=== PATIENT | female | born 1995 | race Caucasian/White ===

== ENCOUNTER 2018-02-22 16:05 | Emergency (ER) | payer BC ==
[2018-02-22 16:09] VITALS: BP 145/95; PULSE 88; TEMP 99.2; BMI 19.3
--- NOTE | 2018-02-22 16:17 | PDOC ---
History of Present Illness <Carmel Suarez - Last Filed: 02/22/18 17:20> - General History Source: Patient Exam Limitations: No Limitations - History of Present Illness Initial Comments: 02/22/18 16:22 The patient is a 22 year old female with no significant past medical history who presents to the emergency department for evaluation of left foot pain. The patient reports moderate left foot pain with no radiation. The patient reports landing on the lateral side of her left foot after falling and tripping while walking her dog this afternoon. She denies head trauma, loss of consciousness, or any other injuries. Allergies: NKDA Surgical History: Patient denies. Severity: moderate Associated Symptoms: reports: denies symptoms Aspirin Received prior to arrival: Yes: no aspirin today <Arsenio Johnson - Last Filed: 02/22/18 17:25> - General Chief Complaint: Pain, Acute Stated Complaint: LEFT FOOT PAIN Time Seen by Provider: 02/22/18 16:10 Past History - Past Medical History CVA: No COPD: No - Immunization History Immunization Up to Date: Yes - Suicide/Smoking/Psychosocial Hx Smoking History: Never smoked Have you smoked in the past 12 months: No Number of Cigarettes Smoked Daily: 0 Hx Alcohol Use: No Drug/Substance Use Hx: No Substance Use Type: None <Carmel Suarez - Last Filed: 02/22/18 17:20> <Arsenio Johnson - Last Filed: 02/22/18 17:25> - Past Medical History Allergies/Adverse Reactions: Allergies Allergy/AdvReac Type Severity Reaction Status Date / Time No Known Allergies Allergy Verified 02/22/18 16:06 Home Medications: Ambulatory Orders NK [No Known Home Medication] 01/03/15 Control 02/22/18 Review of Systems - Review of Systems Able to Perform ROS?: Yes Is the patient limited Polish proficient: No Constitutional: No: Chills, Diaphoresis, Fever, Loss of Appetite, Malaise, Night Sweats, Weakness, Weight Stable, Unintentional Wgt. Loss, Unexplained wgt Loss HEENTM: No: Eye Pain, Recent change in vision, Ear Pain, Nose Pain, Throat Pain Respiratory: No: Cough, Orthopnea, Shortness of Breath, SOB with Exertion, SOB at Rest Cardiac (ROS): No: Chest Pain, Chest Tightness ABD/GI: No: Abdominal Distended, Constipated, Diarrhea, Nausea, Poor Appetite, Vomiting : No: Burning, Dysuria, Discharge, Frequency, Flank Pain, Hematuria, Incontinence Musculoskeletal: No: Muscle Pain, Muscle Weakness Integumentary: No: Bruising, Change in Color, Dryness, Erythema, Flushing Neurological: No: Headache All Other Systems: Reviewed and Negative <Arsenio Johnson - Last Filed: 02/22/18 17:25> *Physical Exam - Vital Signs Last Vital Signs Temp Pulse Resp BP Pulse Ox 99.2 F 88 18 145/95 100 02/22/18 16:05 02/22/18 16:05 02/22/18 16:05 02/22/18 16:05 02/22/18 16:05 <DanielaNayana Arun - Last Filed: 02/22/18 17:20> - Vital Signs Last Vital Signs Temp Pulse Resp BP Pulse Ox 99.2 F 88 18 145/95 100 02/22/18 16:05 02/22/18 16:05 02/22/18 16:05 02/22/18 16:05 02/22/18 16:05 - Physical Exam Comments: GENERAL: Well developed, well nourished. Awake and alert. No acute distress. HEENT: Normocephalic, atraumatic. PERRLA, EOMI. No conjunctival pallor. Sclera are non- icteric. Moist mucous membranes. Oropharynx is clear. NECK: Supple. Full ROM. No JVD. Carotid pulses 2+ and symmetric, without bruits. No thyromegaly. No lymphadenopathy. CARDIOVASCULAR: Regular rate and rhythm. No murmurs, rubs, or gallops. Distal pulses are 2+ and symmetric. PULMONARY: No evidence of respiratory distress. Lungs clear to auscultation bilaterally. No wheezing, rales or rhonchi. ABDOMINAL: Soft. Non-tender. Non-distended. No rebound or guarding. No organomegaly. Normoactive bowel sounds. MUSCULOSKELETAL Normal range of motion at all joints. No bony deformities or tenderness. No CVA tenderness. EXTREMITIES: (+)Tenderness to palpation to lateral aspect of left food. Malleolus normal. Achilles tendon normal. No cyanosis. No clubbing. No edema. No calf tenderness. SKIN: Warm and dry. Normal capillary refill. No rashes. No jaundice. NEUROLOGICAL: Alert, awake, appropriate. Cranial nerves 2-12 intact. No deficits to light touch and temperature in face, upper extremities and lower extremities. No motor deficits in the in face, upper extremities and lower extremities. Normoreflexic in the upper and lower extremities. Normal speech. Toes are down- going bilaterally. PSYCHIATRIC: Cooperative. Good eye contact. Appropriate mood and affect. General Appearance: Yes: Nourished, Appropriately Dressed HEENT: positive: EOMI, TYLOR, Normal ENT Inspection, TMs Normal, Pharynx Normal Neck: positive: Supple Respiratory/Chest: positive: Lungs Clear, Normal Breath Sounds Cardiovascular: positive: Regular Rhythm, Regular Rate Gastrointestinal/Abdominal: positive: Normal Bowel Sounds, Soft Musculoskeletal: positive: Normal Inspection. negative: CVA Tenderness Extremity: positive: Normal Capillary Refill, Normal Inspection, Normal Range of Motion, Other ((+)Tenderness to palpation to lateral aspect of left food. Malleola normal. Achilles tendon normal. ) Integumentary: positive: Normal Color, Warm Neurologic: positive: museum docent II-XII NML intact, Fully Oriented, Alert, Normal Mood/ Affect, Normal Response, Motor Strength 5/5 <Arsenio Johnson - Last Filed: 02/22/18 17:25> Medical Decision Making - Medical Decision Making 02/22/18 17:25 Impression: X-ray reading, no fracture or dislocation, awaiting official read from radiologist. Diagnosed as left foot sprain. <Arsenio Johnson - Last Filed: 02/22/18 17:25> *DC/Admit/Observation/Transfer - Discharge Dispostion Decision to Admit order: No <Carmel Suarez - Last Filed: 02/22/18 17:20> - Attestations Scribe Attestion: Documentation prepared by Arsenio Johnson, acting as medical officer psychiatry for Carmel Suarez MD. <Arsenio Johnson - Last Filed: 02/22/18 17:25> Diagnosis at time of Disposition: Foot sprain Qualifiers: Encounter type: initial encounter Laterality: left Qualified Code(s): S93.602A - Unspecified sprain of left foot, initial encounter - Discharge Dispostion Disposition: HOME Condition at time of disposition: Stable - Referrals Referrals: Temo Peters MD [Staff Physician] - - Patient Instructions Printed Discharge Instructions: DI for Foot Sprain
== END 2018-02-22 17:28 | disposition home or self-care (01) ==
LOC: FER 16:05
DX: S93.602A Unspecified sprain of left foot, initial encounter (principal); W18.39XA Other fall on same level, initial encounter; Y93.89 Activity, other specified; Y92.9 Unspecified place or not applicable
CPT/HCPCS: 73630-TC-LT; 99282-25